=== PATIENT | male | born 1965 | race Hispanic/Latino ===

== ENCOUNTER 2023-11-20 08:25 | Observation (INO) | payer OTHER ==
[2023-11-20 09:28] LABS: #Basophils 0.04 10x3/uL (0.0-0.2); %Basophils 0.6 % (0.0-1.0); %Lymphocytes 12.7 % (21.0-51.0); %Monocytes 14.6 % (0.0-10.0); %Neutrophils 69.5 % (42.0-75.0); Hematocrit 43.2 % (42.0-52.0); Hemoglobin 15.4 g/dL (14.0-18.0); Mean Corpuscular HGB CONC 35.6 g/dL (32.0-36.0); Mean Corpuscular Volume 81.4 fL (78.0-98.0); Mean Platelet Volume 8.5 fL (7.4-10.4); Platelet Count 188 10x3/uL (130-400); RBC Distribution Width 13.1 % (11.5-14.5); Red Blood Cell (RBC) Count 5.31 mill/uL (4.70-6.10)
[2023-11-20 09:41] LABS: ALT (SGPT) 9 U/L (8-55); AST (SGOT) 11 U/L (5-34); Albumin 3.4 g/dL (3.5-5.0); Alkaline Phosphatase 85 U/L (40-110); Anion Gap 17 mmol/L (10-20); BUN (Urea Nitrogen) 23 mg/dL (8.4-25.7); Bilirubin, Total 1.2 mg/dL (0.2-1.2); Calc. Creatinine Clearance 0 mL/min (70-130); Calcium 9.4 mg/dL (7.8-10.44); Carbon Dioxide 20 mmol/L (22-29); Chloride 96 mmol/L (98-107); Estimated GFR 65; Globulin 3.3 g/dL (2.4-3.5); Glucose 340 mg/dL (70-105); Potassium 4.1 mmol/L (3.5-5.1); Protein, Total 6.7 g/dL (6.0-8.3); Sodium 129 mmol/L (136-145)
[2023-11-20 09:45] LABS: Troponin I 0.015 ng/mL (< 0.028)
[2023-11-20 11:42] LABS: Bacteria/HPF 3+ HPF (None Seen); Bilirubin Negative (Negative); Blood, Urine Trace (Negative); CAUTI Indications for Culture Fever or rigors; Clarity Clear (Clear); Glucose, Urine (Dipstick) Greater than 1000 mg/dL (Negative); Ketone, Urine 20 mg/dL (Negative); Leukocyte 250 Leu/uL (Negative); Nitrite Negative (Negative); Protein, Urine (Dipstick) Negative (Neg-Trace); Specific Gravity, Urine 1.036 (1.002-1.036); Squamous Epithelial 0-3 HPF (0-3); Urobilinogen Normal mg/dL (Less than 2); WBC/HPF 21-50 HPF (0-3); Yeast-Budding 1+ HPF (None Seen); Yeast-Hyphae Rare HPF (None Seen)
[2023-11-20 11:54] LABS: Urine Culture Reflex Yes Yes
[2023-11-20 12:09] VITALS: BMI 31.9
[2023-11-20] MEDS ORDERED: Glucagon 1 MG/ML KIT IM PRN (12:21)
[2023-11-20] MEDS ORDERED: Dextrose 5% in Water 1,000 ML IV PRN (12:21)
[2023-11-20] MEDS ORDERED: Dextrose 50% Abboject 50 ML SYRINGE SLOW IVP PRN (12:21)
[2023-11-20 13:13] LABS: Troponin I 0.019 ng/mL (< 0.028)
[2023-11-20] MEDS: Acetaminophen 325 MG TAB PO PRN (17:02)
[2023-11-20] MEDS: Insulin Lispro 100 UNIT/ML 10 ML VIAL SC PRN ×2 (17:03→22:18)
[2023-11-20 17:12] LABS: Troponin I Less than 0.010 ng/mL (< 0.028)
[2023-11-20] MEDS ORDERED: HumaLOG 300 UNITS/3 ML VIAL SC PRN (22:11)
[2023-11-21 03:47] LABS: #Basophils 0.04 10x3/uL (0.0-0.2); %Basophils 0.6 % (0.0-1.0); %Eosinophils 2.6 % (0.0-10.0); %Lymphocytes 14.6 % (21.0-51.0); %Monocytes 13.4 % (0.0-10.0); Hematocrit 46.3 % (42.0-52.0); Hemoglobin 16.6 g/dL (14.0-18.0); Mean Corpuscular HGB CONC 35.9 g/dL (32.0-36.0); Mean Corpuscular Volume 80.8 fL (78.0-98.0); Mean Platelet Volume 8.4 fL (7.4-10.4); Platelet Count 169 10x3/uL (130-400); RBC Distribution Width 13.3 % (11.5-14.5); Red Blood Cell (RBC) Count 5.73 mill/uL (4.70-6.10)
[2023-11-21 04:44] LABS: Hemoglobin A1c 10.7 % (4.0-6.0)
[2023-11-21 04:56] LABS: Anion Gap 16 mmol/L (10-20); BUN (Urea Nitrogen) 26 mg/dL (8.4-25.7); Calc. Creatinine Clearance 122 mL/min (70-130); Calcium 9.6 mg/dL (7.8-10.44); Carbon Dioxide 20 mmol/L (22-29); Cardiac Risk 4.2 (Less than 4.5); Chloride 98 mmol/L (98-107); Cholesterol 133 mg/dl (< 200 Desired); Estimated GFR 83; Glucose 206 mg/dL (70-105); HDL Cholesterol 32 mg/dL (>60 Neg Risk); LDL Cholesterol, Calculated 72 mg/dL; Potassium 3.7 mmol/L (3.5-5.1); Sodium 130 mmol/L (136-145); Triglycerides 146 mg/dL (Less than 150)
[2023-11-21] MEDS: Enoxaparin 40 MG (0.4 mL) SYRINGE SC SCH (07:52)
[2023-11-21] MEDS: Spironolactone 25 MG TAB PO SCH (08:27)
[2023-11-21] MEDS: Aspirin Chewable 81 MG TAB PO SCH (08:27)
[2023-11-21] MEDS: Empagliflozin 10 MG TAB PO SCH (08:28)
[2023-11-21] MEDS: Clopidogrel Bisulfate 75 MG TAB PO SCH (08:28)
[2023-11-21] MEDS: cefTRIAXone\\ROCEPHIN 1 GM in Sodium Chloride 0.9% 100 ML IVPB SCH (09:51)
[2023-11-21] MEDS: Insulin NPH Human Isophane 100 UNITS/ML (10 ML VIAL) SQ SCH (10:00)
[2023-11-21 10:36] VITALS: BMI 31.9
[2023-11-21] MEDS ORDERED: Regadenoson 0.4 MG/5 ML SYRINGE ONE (14:47)
[2023-11-21] MEDS: Carvedilol 6.25 MG TAB PO SCH (16:21)
[2023-11-21] MEDS: Lisinopril 10 MG TAB PO SCH (16:40)
[2023-11-21 16:47] VITALS: BP 161/90; TEMP 99.6
[2023-11-21] MEDS ORDERED: Insulin NPH Human Isophane 100 UNITS/ML (10 ML VIAL) SQ SCH (21:00)
[2023-11-21] MEDS ORDERED: Atorvastatin Calcium 10 MG TAB PO SCH (21:00)
[2023-11-22] MEDS ORDERED: Levothyroxine Sodium 125 MCG TAB PO SCH (06:00)
== END 2023-11-21 20:21 ==
LOC: ERS 08:25 → EEVIPCON 08:25 → ERHOLD 10:57 → 2SW 15:44
PROVIDERS: ADMIT Internal Medicine; ATTEND Internal Medicine
DX: R07.9 Chest pain, unspecified (principal); E11.9 Type 2 diabetes mellitus without complications; I11.0 Hypertensive heart disease with heart failure; I50.9 Heart failure, unspecified; Z79.4 Long term (current) use of insulin; Z79.84 Long term (current) use of oral hypoglycemic drugs; Z70.2 Counseling related to sexual behavior and orientation of third party; Z79.82 Long term (current) use of aspirin; Z79.899 Other long term (current) drug therapy
CPT/HCPCS: 36415; 36416; 71045; 78452; 80048; 80053; 80061; 81001; 83036; 84484; 85025; 87086; 93005; 93017; A9502; G0378; J0696; J1650; J1815; J2785